=== PATIENT | male | born 1945 | race Caucasian/White ===

== ENCOUNTER 2024-06-24 08:04 | Outpatient (CLI) | payer MEDICARE, SELFPAY ==
--- NOTE | ~2024-06-24 | XR_ITS ---
Clinical Indication: Renal malignancy PA and lateral views of the chest: Comparison: None Findings: The lungs are clear, without evidence of focal consolidation or pleural effusion. Cardiome diastinal silhouette is within normal limits. Bones and soft tissues are unremarkable. Impression: Normal chest. Reviewed, dictated and finalized at location . Impression: Normal chest.
--- NOTE | ~2024-06-24 | CT_ITS ---
CT of the Abdomen and Pelvis: Indication: Renal cell carcinoma Technique: 2.5 mm axial scans were obtained through the abdomen and pelvis prior to and following in travenous administration of 100 cc of Omnipaque 350. Dose reduction technique was used on this scan b y utilizing automated exposure control and iterative reconstruction technique. The dose-length produc t (DLP) was 2121.58 mGy-cm. Findings: Scans through the lung bases are unremarkable. The liver, spleen, pancreas, gallbladder, adrenals and right kidney are within normal limits. There i s a 3.6 x 2.0 cm exophytic nonenhancing mass at the upper to mid pole of the left kidney, with sugges tion of some peripheral thin calcification. No evidence of aortic aneurysm. No lymphadenopathy. No bowel obstruction or bowel wall thickening. There is no evidence to suggest acute appendicitis. Images through the pelvis were performed. Urinary bladder unremarkable. Prostate gland is enlarged. N o ascites. Impression: 3.6 x 2.0 cm exophytic nonenhancing left renal mass, as above. This could reflect treated lesion or c omplex cystic mass. Comparison with any prior exams would be useful to assess for stability of the le patric. Reviewed, dictated and finalized at location . Impression: 3.6 x 2.0 cm exophytic nonenhancing left renal mass, as above. This could refle ct treated lesion or complex cystic mass. Comparison with any prior exams would be useful to assess for stability of the lesion.
--- OUTSIDE RECORDS SUMMARY | 2024-06-24 08:16 | XMS_ITS | Clinical Summary ---
Author Organization [facility] Address [address] [place] [id number] Care Team Providers Care Instant Print Operator Name Role Phone Srinivasa Sandoval MD Primary Care Provider [phone] Allergies No known active allergies Medications Farxiga 5 mg tablet Take 1 tablet (5 mg total) by mouth daily 04/05/2024 Active levothyroxine (SYNTHROID) 50 mcg tablet 04/04/2024 Active losartan-hydroch lorothiazide (HYZAAR) 100-25 mg per tablet 04/04/2024 Activ e simvastatin (ZOCOR) 20 mg tablet 04/04/2024 Active tamsulosin (FLOMAX) 0.4 mg extended release capsule 04/04/2024 Active Active Problems No known active problems Encounters Date Type Department Care Team Description 05/18/2024 1:30 PM CDT Office Visit [facility] [address] [place] [address] [place] [phone] Jeanie Lyon NP Chronic left-sided low back pain with left-sided sciatica; Neural foraminal stenosis of lumbar spine, moderate-severe L4-L5, L5-S1; Lumbar facet arthropathy; Degeneration of intervertebral disc of lumbar region, multilevel with lower extremity pain; History of kyphoplasty, T12; Myofascial pain syndrome of lumbar spine 05/18/2024 12:59 PM CDT - 05/18/2024 11:59 PM CDT Hospital Encounter [facility] Di[facility] [address] [place] [id number] Lumbar pain Discharge Disposition: Discharge to home or self care 05/06/2024 9:26 AM SOCIAL WORK COORDINATOR - 05/06/2024 11:59 PM SOCIAL WORK COORDINATOR Hospital Encounter [facility] Diagnostic Imaging [address] [place] [address] Right shoulder pain, unspecified chronicity Discharge Disposition: Discharge to home or self care 04/28/2024 10:15 AM SOCIAL WORK COORDINATOR Office Visit [facility] [address] [facility] [address] [place] [phone] Eligio Jacob MD Left hip pain (Primary Dx); Right shoulder pain, unspecified chronicity; Osteoarthritis of glenohumeral joint, right; Primary osteoarthritis of left hip; Lumbar radiculopathy 04/28/2024 8:45 AM SOCIAL WORK COORDINATOR - 04/28/2024 11:59 PM SOCIAL WORK COORDINATOR Hospital Encounter [facility] MOB 1 DIAG IMG [address] [place] [address] Right shoulder pain, unspecified chronicity; Left hip pain Discharge Disposition: Discharge to home or self care from Last 3 Months Surgical History Surgery Date Site/Laterality Comments FLUORO GUIDED INJECTION SHOULDER RIGHT 05/06/2024 Right BACK SURGERY 03/04/2018 - 03/03/2019 kyoplasty T 12 Medical History Medical History Date Comments DDD (degenerative disc disease), lumbar Lumbar facet arthropathy Neural foraminal stenosis of lumbar spine History of kyphoplasty, T12 Family History Medical History Relation Name Comments Diabetes Father Hypertension Father Heart disease Mother Relation Name Status Comments Father Mother Social History Tobacco Use Types Packs/Day Years Used Date Smoking Tobacco: Never Smokeless Tobacco: Never Tobacco Cessation:Counseling Given: Not Answered AUDIT-C Answer Date Recorded Q1: How often do you have a drink containing alc ohol? 2-3 times a week 05/18/2024 Q2: How many drinks containi ng alcohol do you have on a typical day when you are drinking? 1 or 2 05/18/2024 Q3: How often do you have si x or more drinks on one occasion? Never 05/18/2024 Sex and Gender Information Value Date Recorded Sex Assigned at Not on file Legal Sex Male 12:46 PM SOCIAL WORK COORDINATOR Gender Identity Male 04/24/2024 10:53 AM SOCIAL WORK COORDINATOR Sexual Orientation Straight 04/24/2024 10 :53 AM SOCIAL WORK COORDINATOR Occupation Industry Job Start Date Job End Date retired Not on file Not on file Not on file Obstetrics History Last Filed Vital Signs Vital Sign Reading Time Taken Comments Blood Pressure - - Pulse - - Temperature - - Respiratory Rate - - Oxygen Saturation - - Inhaled Oxygen Concentration - - Weight 99.8 kg (220 lb) 05/18/2024 1:16 PM CDT Height 177.8 cm (5' 10 ) 05/18/2024 1:16 PM CDT Body Mass Index 31.57 05/18/2024 1:16 PM CDT Plan of Treatment Health Maintenance Due Date Last Done Comments Depression Screening 1945 Fall Risk Assessment 1945 Hepatitis C Screening 1945 DTaP/Tdap/Td Vaccine (1 - Tdap) 1957 Hepatitis B Screening 1964 Pneumococcal vaccine 65+ (1 of 1 - PCV) 1996 Zoster Vaccine (1 of 2) 1996 Well Visit 65+ 06/03/2011 Influenza Vaccine (Season Ended) 2024 Procedures Procedure Name Priority Date/Time Associated Diagnosis Comments MD INJECTION SINGLE/STAFFING AND SCHEDULING COORDINATOR TRIGGER POINT 1/2 MUSCLES Routine 05/18/2024 1:30 PM CDT Myofascial pain syndrome of lumbar spine XR SPINE LUMBAR W BENDING 6 OR MORE VIEWS Schedule Routine, Read Routine (OP Routine) 05/18/2024 1:07 PM CDT Lumbar pain FLUORO GUIDED INJECTION SHOULDER RIGHT Schedule Routine, Read Routine (OP Routine) 05/06/2024 10:18 AM SOCIAL WORK COORDINATOR Right shoulder pain, unspecified chronicity XR HIP LEFT W PELVIS 2 OR 3 VIEWS Schedule Routine, Read Routine (OP Routine) 04/28/2024 10:19 AM SOCIAL WORK COORDINATOR Left hip pain XR SHOULDER RIGHT 2 OR MORE VIEWS Schedule Routine, Read Routine (OP Routine) 04/28/2024 10:19 AM SOCIAL WORK COORDINATOR Right shoulder pain, unspecified chronicity from Last 3 Months Results * MD INJECTION SINGLE/STAFFING AND SCHEDULING COORDINATOR TRIGGER POINT 1/2 MUSCLES (05/18/2024 1:30 PM CDT) Narrative Jeanie Lyon NP - 05/18/2024 1:30 PM CDT Jeanie Lyon NP 05/22/2024 11:36 AM Trigger Point Injection Performed by: Jeanie Lyon NP Authorized by: Jeanie Lyon NP Consent Given by: Patient Site marked: the procedure site was marked Timeout: prior to procedure the correct patient, procedure, and site was verified Consent obtained:: Verbal Risks discussed, including, but not limited to:: Pain Alternatives discussed:: Alternative treatment Site/side marked: Yes Indications: Pain Location: L lumbar paraspinal and L piriformis Local anesthetic: Ethyl chloride spray Ultrasound guidance: No Needle size: 22 G Number of muscles: 1 or 2 Approach: Posterior Medications: 6 mL lidocaine 10 mg/mL (1 %); 120 mg triamcinolone 40 mg/mL Patient tolerance: Patient tolerated the procedure well with no immediate complications Jeanie Lyon CARD TAPE CONVERTER OPERATOR IN CLINIC/BEDSIDE ORDERABLE S Final Result * XR Spine Lumbar W Bending 6 or More Views (05/18/2024 1:07 PM CDT) Anatomical Region Laterality Modality Spine N/A Computed Radiogr aphy 05/22/2024 9:51 AM CDT Narrative 05/22/2024 9:58 AM CDT EXAM DESCRIPTION: XR SPINE LUMBAR W BENDING 6 OR MORE VIEWS REASON FOR STUDY: pain Increased pain in low back and left leg for 2 months, no injury TECHNIQUE: 6 radiographic view(s) of the lumbar spine. COMPARISON: None FINDINGS: ALIGNMENT: Anatomic. VERTEBRAE: Multilevel vertebral body height loss, greatest at L1 and L2. Status post kyphoplasty at T12. Bilateral facet hypertrophy with moderate-severe neural foraminal narrowing at L4-L5 and L5-S1. DISCS: Intervertebral disc height loss at L5-S1. SOFT TISSUES: Within normal limits. IMPRESSION: Spinal spondylosis with moderate-severe neural foraminal narrowing at L4-L5 and L5-S1. THIS IS AN ELECTRONICALLY VERIFIED FINAL REPORT 05/22/2024 9:58 AM - Electronically signed by Mindy Bowles M.D. FT T: Report ID: [id number] Reading Location: [id number] Procedure Note Mindy Rahman MD - 05/22/2024 EXAM DESCRIPTION: XR SPINE LUMBAR W BENDING 6 OR MORE VIEWS REASON FOR STUDY: pain Increased pain in low back and left leg for 2 months, no injury TECHNIQUE: 6 radiographic view(s) of the lumbar spine. COMPARISON: None FINDINGS: ALIGNMENT: Anatomic. VERTEBRAE: Multilevel vertebral body height loss, greatest at L1 and L2. Status post kyphoplasty at T12. Bilateral facet hypertrophy with moderate-severe neural foraminal narrowing at L4-L5 and L5-S1. DISCS: Intervertebral disc height loss at L5-S1. SOFT TISSUES: Within normal limits. IMPRESSION: Spinal spondylosis with moderate-severe neural foraminalnarrowing at L4-L5 and L5-S1. THIS IS AN ELECTRONICALLY VERIFIED FINAL REPORT 05/22/2024 9:58 AM - Electronically signed by Mindy Bowles M.D. FT T: Report ID: [id number] Reading Location: [id number] Jeanie Lyon NP IMG XR PROCEDURES Final Res ult * FL Fluoro Guided Injection Shoulder Right (05/06/2024 10:18 AM SOCIAL WORK COORDINATOR) Anatomical Region Laterality Modality Shoulder Right Computed Radiogr aphy, Computed Radiography 05/06/2024 10:1 6 AM SOCIAL WORK COORDINATOR Narrative 05/06/2024 11:56 AM SOCIAL WORK COORDINATOR EXAM DESCRIPTION: FL FLUORO GUIDED INJECTION SHOULDER RIGHT HISTORY: Right shoulder pain RADIATION DOSE: Needle placement was documented with a fluoroscopic image. Dose: 15.81 uGym? Dose Area Product (DAP) Total number of views: 1 TECHNIQUE: Digital images acquired during fluoroscopy and stored on PACS. Needle placement was documented with fluoroscopic images. 10 mL of a mixture containing 40 mg Kenalog, 5 mL of 0.5 % bupivacaine and 4 mL of Omnipaque 240 was injected. COMPARISON: None PROCEDURE: Procedure, risks, benefits and alternatives explained to patient who then gave written consent. The right shoulder was marked and a time-out was called for correct marking verification. Anterior entry site marked using fluoroscopic guidance. Right shoulder prepped and draped using sterile technique. Local anesthesia achieved using 1% lidocaine injection. Hypodermic needle introduced into the joint space under direct fluoroscopic visualization. Non-ionic contrast instilled to confirm intra-articular position. A mixture of 40 mg Kenalog,0.5 % bupivacaine and Omnipaque 2 4 was then injected. Needle removed and entry site covered with sterile bandage. No immediate complications noted. IMPRESSION: Successful needle placement and injection for right shoulder steroid injection. THIS IS AN ELECTRONICALLY VERIFIED FINAL REPORT 05/06/2024 11:56 AM - Electronically signed by Ronan Ontiveros M.D. JA: SKYLER Report ID: [id number] Reading Location: [id number] Procedure Note Ronan Ontiveros MD - 05/06/2024 EXAM DESCRIPTION: FL FLUORO GUIDED INJECTION SHOULDER RIGHT HISTORY: Right shoulder pain RADIATION DOSE: Needle placement was documented with a fluoroscopicimage. Dose: 15.81 uGym? Dose Area Product (DAP) Total number of views: 1 TECHNIQUE: Digital images acquired during fluoroscopy and stored on PACS. Needle placement was documented with fluoroscopic images. 10 mL of a mixture containing 40 mg Kenalog, 5 mL of 0.5 % bupivacaineand 4 mL of Omnipaque 240 was injected. COMPARISON: None PROCEDURE: Procedure, risks, benefits and alternatives explained topatient who then gave written consent. The right shoulder was marked and atime-out was called for correct marking verification. Anterior entry site marked using fluoroscopic guidance. Right shoulder prepped and draped using sterile technique. Local anesthesia achievedusing 1% lidocaine injection. Hypodermic needle introduced into the joint space under direct fluoroscopic visualization. Non-ionic contrast instilled to confirm intra-articular position. A mixture of 40 mg Kenalog,0.5 % bupivacaine and Omnipaque 2 4 was then injected. Needle removed and entry site covered with sterile bandage. No immediate complications noted. IMPRESSION: Successful needle placement and injection for right shoulder steroid injection. THIS IS AN ELECTRONICALLY VERIFIED FINAL REPORT 05/06/2024 11:56 AM - Electronically signed by Ronan HOLLAND: SKYLER Report ID: [id number] Reading Location: [id number] Eligio Jacob MD IMG FLUOROSCOPY PROCEDURES Final Result * XR Hip Left W Pelvis Min 2 To 3 Views (04/28/2024 10:19 AM SOCIAL WORK COORDINATOR) Anatomical Region Laterality Modality Lower Extremities, Hip, Pelvis Left C omputed Radiography 04/29/2024 4:44 PM SOCIAL WORK COORDINATOR Narrative 04/29/2024 4:46 PM SOCIAL WORK COORDINATOR EXAM DESCRIPTION: XR SHOULDER RIGHT 2 OR MORE VIEWS; XR HIP LEFT 2 OR 3 VIEWS W PELVIS REASON FOR STUDY: right shoulder pain Torn rotator cuff x 6 months, pain ; Left hip pain Left hip pain x 1.5 months, nki FINDINGS: Four views right shoulder and two views left hip submitted without comparison. Right shoulder: No acute fracture. Alignment is normal. There is mild glenohumeral and acromioclavicular joint osteoarthritis. Alignment is normal. Left hip: No acute fracture. The femoral heads are well seated. There is mild bilateral hip osteoarthritis. Inferior lumbar degenerative disc disease with facet osteoarthritis is present. IMPRESSION: Mild right glenohumeral and acromioclavicular joint osteoarthritis. Mild bilateral hip osteoarthritis. 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 THIS IS AN ELECTRONICALLY VERIFIED FINAL REPORT 04/29/2024 4:46 PM - Electronically signed by Scar Rodriguez M.D. MF: ALIDA Report ID: [id number] Reading Location: [id number] Procedure Note Scar Rodriguez MD - 04/29/2024 EXAM DESCRIPTION: XR SHOULDER RIGHT 2 OR MORE VIEWS; XR HIP LEFT 2 OR 3 VIEWS W PELVIS REASON FOR STUDY: right shoulder pain Torn rotator cuff x 6 months, pain ; Left hip pain Left hip pain x 1.5 months, nki FINDINGS: Four views right shoulder and two views left hip submittedwithout comparison. Right shoulder: No acute fracture. Alignment is normal. There is mild glenohumeral and acromioclavicular joint osteoarthritis. Alignment is normal. Left hip: No acute fracture. The femoral heads are well seated. There is mild bilateral hip osteoarthritis. Inferior lumbar degenerative disc diseasewith facet osteoarthritis is present. IMPRESSION: Mild right glenohumeral and acromioclavicular joint osteoarthritis. Mild bilateral hip osteoarthritis. 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 THIS IS AN ELECTRONICALLY VERIFIED FINAL REPORT 04/29/2024 4:46 PM - Electronically signed by Scar Rodriguez M.D. MF: ALIDA Report ID: [id number] Reading Location: [place] [address] Eligio Jacob MD IMG XR PROCEDURES Final Re sult * XR Shoulder Right 2 or More Views (04/28/2024 10:19 AM SOCIAL WORK COORDINATOR) Anatomical Region Laterality Modality Upper Extremities, Shoulder Right Comp uted Radiography 04/29/2024 4:44 PM SOCIAL WORK COORDINATOR Narrative 04/29/2024 4:46 PM SOCIAL WORK COORDINATOR EXAM DESCRIPTION: XR SHOULDER RIGHT 2 OR MORE VIEWS; XR HIP LEFT 2 OR 3 VIEWS W PELVIS REASON FOR STUDY: right shoulder pain Torn rotator cuff x 6 months, pain ; Left hip pain Left hip pain x 1.5 months, nki FINDINGS: Four views right shoulder and two views left hip submitted without comparison. Right shoulder: No acute fracture. Alignment is normal. There is mild glenohumeral and acromioclavicular joint osteoarthritis. Alignment is normal. Left hip: No acute fracture. The femoral heads are well seated. There is mild bilateral hip osteoarthritis. Inferior lumbar degenerative disc disease with facet osteoarthritis is present. IMPRESSION: Mild right glenohumeral and acromioclavicular joint osteoarthritis. Mild bilateral hip osteoarthritis. 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 THIS IS AN ELECTRONICALLY VERIFIED FINAL REPORT 04/29/2024 4:46 PM - Electronically signed by Scar Rodriguez M.D. MF: ALIDA Report ID: [id number] Reading Location: [id number] Procedure Note Scar Rodriguez MD - 04/29/2024 EXAM DESCRIPTION: XR SHOULDER RIGHT 2 OR MORE VIEWS; XR HIP LEFT 2 OR 3 VIEWS W PELVIS REASON FOR STUDY: right shoulder pain Torn rotator cuff x 6 months, pain ; Left hip pain Left hip pain x 1.5 months, nki FINDINGS: Four views right shoulder and two views left hip submittedwithout comparison. Right shoulder: No acute fracture. Alignment is normal. There is mild glenohumeral and acromioclavicular joint osteoarthritis. Alignment is normal. Left hip: No acute fracture. The femoral heads are well seated. There is mild bilateral hip osteoarthritis. Inferior lumbar degenerative disc diseasewith facet osteoarthritis is present. IMPRESSION: Mild right glenohumeral and acromioclavicular joint osteoarthritis. Mild bilateral hip osteoarthritis. 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 THIS IS AN ELECTRONICALLY VERIFIED FINAL REPORT 04/29/2024 4:46 PM - Electronically signed by Scar Rodriguez M.D. MF: ALIDA Report ID: [id number] Reading Location: [id number] Eligio Jacob MD IMG XR PROCEDURES Final Re sult from Last 3 Months Insurance [facility] [id number] [place] [id number] MEDICARE AARP Care Teams Instant Print Operator Relationship Specialty Start Date End Date Srinivasa Sandoval MD [address] [place] [address] PCP - General Family Practice 04/28/24
--- OUTSIDE RECORDS SUMMARY | 2024-06-24 08:16 | XMS_ITS | Patient Health Record ---
Author Organization [employer] Address [address] [place], [place] [id number] Support Name Relationship Address Phone JORDYN AQUINO Guarantor Unknown [phone] REASON FOR REFERRAL No Information MEDICATIONS Medication SIG (Take, Route, Frequency, Duration) Notes Start Date End Date Status Levaquin 500 MG Oral 10/04/2017 Ac tive Medrol 4 MG Oral 10/04/2017 Active metFORMIN HCl 500 MG Oral 10/04/2017 03/04/18 00 Active Bicalutamide 50 MG Oral 10/04/2017 Active Tamsulosin HCl 0.4 MG Oral 10/04/2017 900 Active Levothyroxine Sodium 50 MCG Oral 10/04/2017 0 Active traMADol HCl 50 MG Oral 10/04/2017 Active Losartan Potassium 100 MG Oral 10/04/201703/1899 Active Simvastatin 20 MG Oral 10/04/2017 Active PLAN OF TREATMENT No Information Insurance Providers Payer Name Payer Address Payer Phone Subscriber Number Group Number Insured Name Patient Relationship to Insured Coverage Start Date Coverage End Date [employer] [place] [employer] [address] [address] [place] [phone] [id number] JORDYN AQUINO Self - patient is the insured [facility] Medicare Supplement [address] [facility] [place] [phone] [id number] JORDYN AQUINO Self - patient is the insured
--- OUTSIDE RECORDS SUMMARY | 2024-06-24 08:16 | XMS_ITS | Referral Summary ---
[facility] Address [address] [place] [phone] Care Team Providers Care Christmas Tree Farm Manager Name Role Phone Srinivasa Sandoval MD Primary Care Provider [phone] Encounters Date Type Department Care Team Description 05/18/2024 12:59 PM CDT - 05/18/2024 11:59 PM CDT Hospital Encounter [facility] Di[facility] Imaging [address] [place] [id number] Lumbar pain Discharge Disposition: Discharge to home or self care 05/18/2024 1:30 PM CDT Office Visit [facility] [address] [place] [phone] Jeanie Lyon, RENU Chronic left-sided low back pain with left-sided sciatica; Neural foraminal stenosis of lumbar spine, moderate-severe L4-L5, L5-S1; Lumbar facet arthropathy; Degeneration of intervertebral disc of lumbar region, multilevel with lower extremity pain; History of kyphoplasty, T12; Myofascial pain syndrome of lumbar spine 05/06/2024 9:26 AM FILM HISTORIAN - 05/06/2024 11:59 PM FILM HISTORIAN Hospital Encounter [facility] Diagnostic Imaging [facility] [place] [address] Right shoulder pain, unspecified chronicity Discharge Disposition: Discharge to home or self care 04/28/2024 8:45 AM FILM HISTORIAN - 04/28/2024 11:59 PM FILM HISTORIAN Hospital Encounter [facility] [address] DIAG IMG [address] [place] [address], [place] [address] Right shoulder pain, unspecified chronicity; Left hip pain Discharge Disposition: Discharge to home or self care 04/28/2024 10:15 AM FILM HISTORIAN Office Visit [facility] [address] [facility] [address] [place] [phone] Eligio Jacob MD Left hip pain (Primary Dx); Right shoulder pain, unspecified chronicity; Osteoarthritis of glenohumeral joint, right; Primary osteoarthritis of left hip; Lumbar radiculopathy from Last 3 Months Allergies No known active allergies Medications Farxiga 5 mg tablet Take 1 tablet (5 mg total) by mouth daily 04/05/2024 Active levothyroxine (SYNTHROID) 50 mcg tablet 04/04/2024 Active losartan-hydroch lorothiazide (HYZAAR) 100-25 mg per tablet 04/04/2024 Activ e simvastatin (ZOCOR) 20 mg tablet 04/04/2024 Active tamsulosin (FLOMAX) 0.4 mg extended release capsule 04/04/2024 Active Active Problems No known active problems Social History Tobacco Use Types Packs/Day Years [...] on file Legal Sex Male 12:46 PM FILM HISTORIAN Gender Identity Male 04/24/2024 10:53 AM FILM HISTORIAN Sexual Orientation Straight 04/24/2024 10 :53 AM FILM HISTORIAN Occupation Industry Job Start Date Job End Date retired Not on file Not on file Not on file Last Filed Vital Signs Vital Sign Reading Time Taken Comments Blood Pressure - - Pulse - - Temperature - - Respiratory Rate - - Oxygen Saturation - - Inhaled Oxygen Concentration - - Weight 99.8 kg (220 lb) 05/18/2024 1:16 PM CDT Height 177.8 cm (5' 10 ) 05/18/2024 1:16 PM CDT Body Mass Index 31.57 05/18/2024 1:16 PM CDT Plan of Treatment Not on file Procedures Procedure Name Priority Date/Time Associated Diagnosis Comments [place] INJECTION SINGLE/PERSONAL LOAN SPECIALIST TRIGGER POINT 1/2 MUSCLES Routine 05/18/2024 1:30 PM CDT Myofascial pain syndrome of lumbar spine XR SPINE LUMBAR W BENDING 6 OR MORE VIEWS Schedule Routine, Read Routine (OP Routine) 05/18/2024 1:07 PM CDT Lumbar pain FLUORO GUIDED INJECTION SHOULDER RIGHT Schedule Routine, Read Routine (OP Routine) 05/06/2024 10:18 AM FILM HISTORIAN Right shoulder pain, unspecified chronicity XR HIP LEFT W PELVIS 2 OR 3 VIEWS Schedule Routine, Read Routine (OP Routine) 04/28/2024 10:19 AM FILM HISTORIAN Left hip pain XR SHOULDER RIGHT 2 OR MORE VIEWS Schedule Routine, Read Routine (OP Routine) 04/28/2024 10:19 AM FILM HISTORIAN Right shoulder pain, unspecified chronicity from Last 3 Months Results * [place] INJECTION SINGLE/PERSONAL LOAN SPECIALIST TRIGGER POINT 1/2 MUSCLES (05/18/2024 1:30 PM [...] the procedure well with no immediate complications us Jeanie Lyon NP IN CLINIC/BEDSIDE ORDERABLE S Final Result * [...] Mindy Bowles M.D. FT T: Report ID: [id number] Reading Location: [id number] Procedure Note Mindy Rahman MD - 05/22/2024 [...] Mindy Bowles M.D. FT T: Report ID: [id number] Reading Location: [place] [address] Jeanie Lyon WOOD GETTER IMG XR PROCEDURES Final Res ult * FL Fluoro Guided Injection Shoulder Right (05/06/2024 10:18 AM FILM HISTORIAN) Anatomical Region Laterality Modality Shoulder Right Computed Radiogr aphy, Computed Radiography 05/06/2024 10:1 6 AM FILM HISTORIAN Narrative 05/06/2024 11:56 AM FILM HISTORIAN EXAM DESCRIPTION: FL FLUORO GUIDED INJECTION SHOULDER [...] Ronan Ontiveros M.D. JA: SKYLER Report ID: [id number] Reading Location: [id number] Procedure Note Ronan Ontiveros MD - 05/06/2024 [...] signed by Ronan HOLLAND: SKYLER Report ID: [id number] Reading Location: [id number] Eligio Jacob MD [facility] FLUOROSCOPY PROCEDURES Final Result * XR Hip Left W Pelvis Min 2 To 3 Views (04/28/2024 10:19 AM FILM HISTORIAN) Anatomical Region Laterality Modality Lower Extremities, Hip, Pelvis Left C omputed Radiography 04/29/2024 4:44 PM FILM HISTORIAN Narrative 04/29/2024 4:46 PM FILM HISTORIAN EXAM DESCRIPTION: XR SHOULDER RIGHT 2 OR [...] 4:46 PM - Electronically signed by Scar IRWIN: ALIDA Report ID: [id number] Reading Location: [id number] Procedure Note Scar Rodriguez MD - 04/29/2024 [...] Scar Rodriguez M.D. MF: ALIDA Report ID: [id number] Reading Location: [id number] Eligio Jacob MD IMG XR PROCEDURES Final Re sult * XR Shoulder Right 2 or More Views (04/28/2024 10:19 AM FILM HISTORIAN) Anatomical Region Laterality Modality Upper Extremities, Shoulder Right Comp uted Radiography 04/29/2024 4:44 PM FILM HISTORIAN Narrative 04/29/2024 4:46 PM FILM HISTORIAN EXAM DESCRIPTION: XR SHOULDER RIGHT 2 OR [...] Scar Rodriguez M.D. MF: ALIDA Report ID: [id number] Reading Location: [id number] Procedure Note Scar Rodriguez MD - 04/29/2024 [...] Scar Rodriguez M.D. MF: ALIDA Report ID: [id number] Reading Location: [place] [address] Eligio Jacob MD IMG XR PROCEDURES Final Re sult from Last 3 Months Insurance MEDICARE [facility] Care Teams [employer] Tree [employer] Manager Relationship Specialty Start Date End Date Srinivasa Sandoval MD [address] [place], [place] [id number] PCP - General Family Practice 04/28/24
== END 2024-06-24 08:05 | disposition home or self-care (01) ==
PROVIDERS: PCP Family Medicine; Visit Provider Urology
DX: C64.2 Malignant neoplasm of left kidney, except renal pelvis (principal); N28.89 Other specified disorders of kidney and ureter
CPT/HCPCS: 71046; 74178; Q9967

== ENCOUNTER 2024-10-01 12:14 | Emergency (ER) | payer MEDICARE, SELFPAY ==
--- NOTE | 2024-10-01 12:18 | ED.URI ---
HPI - URI/Sore Throat General Chief Complaint: Upper Respiratory Infection Stated Complaint: COUGH/SINUS Time Seen by Provider: 10/01/24 12:18 Source: patient Mode of arrival: ambulatory Limitations: no limitations History of Present Illness HPI Narrative: Patient is a 71-year-old male who presents with sinus congestion, postnasal drainage and cough. Patient reports cough is keeping him up at night along with his . States he can breathe out his nose fine but the drainage gets stuck in his throat causing a cough. Patient has been taking Mucinex. Denies any fever, chills, nausea vomiting, diarrhea. Related Data Home Medications ?Medication ?Instructions ?Recorded ?Confirmed ?Last Taken ?Type B-complex with vitamin C 1 cap PO DAILY 03/03/24 07/04/24 Unknown History cholecalciferol (vitamin D3) 25 25 mcg PO DAILY 03/03/24 07/04/24 Unknown History mcg (1,000 unit) capsule vitamins A,C,U-vcyv-kinvag 2,148 2 tablet PO BID 03/03/24 07/04/24 Unknown History mcg-113 mg-45 mg-17.4 mg tablet (PreserVision AREDS) Allergies Allergy/AdvReac Type Severity Reaction Status Date / Time No Known Allergies Allergy Verified 06/29/24 09:43 Review of Systems Review of Systems: All systems reviewed & are unremarkable except as noted in HPI and below Constitutional: Constitutional: Denies chills, Denies fatigue, Denies fever(s), Denies headache(s), Denies malaise and Denies weakness Eyes: Eyes: Denies blurry vision, Denies itchy eyes and Denies loss of vision ENT: Denies otalgia, Denies headache(s), Reports nasal congestion, Denies sinus pain and Denies sore throat Cardiovascular: Cardiovascular: Denies chest pain, Denies irregular heart rhythm and Denies dyspnea Respiratory: Respiratory: Reports cough and Denies dyspnea Gastrointestinal: Gastrointestinal: Denies abdominal pain, Denies diarrhea, Denies nausea and Denies vomiting Musculoskeletal: Musculoskeletal: Denies back pain, Denies myalgias and Denies arthralgias Integumentary/Breasts: Skin/Breast: Denies pruritus and Denies rash Neurologic: Denies headache(s), Denies loss of vision and Denies weakness Psychiatric: Psychiatric: Reports no additional psychiatric complaints Endocrine: Endocrine: Denies fatigue Allergic/Immunologic: Allergic/Immunologic: Denies itchy eyes PMFSH Past Medical History Medical History Calculus in bladder Acquired absence of kidney Malignant neoplasm of left kidney, except renal pelvis Chronic kidney disease, stage 4 (severe) Bradycardia, unspecified Secondary hyperparathyroidism, not elsewhere classified 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 (nsaid) Essential hematuria Pure hyperglyceridemia Chronic kidney disease, stage 3b Adenocarcinoma of prostate Type 2 diabetes mellitus without complications Essential (primary) hypertension Proteinuria, unspecified Acute kidney failure, unspecified Social History Social History Smoking status: Smoker, status unknown Do You Feel Safe in your Home?: Yes Lack of Transportation: No Lack of Food: Sometimes True Current Housing: I Have Housing Concerned About Future Housing: No Difficulty Paying Gas/Electric Bills: No Difficulty Paying for Meds: No Currently Unemployed: No Education: Master's Degree or Higher Difficulty w/ Childcare or Family Care: No Gender identity (if verbalized by the patient): Male Comments At time of signature, agree with nursing past medical, surgical, social and family history. There is no relevant family history pertinent to the presenting complaint. Exam Const: General: cooperative, healthy appearing, comfortable, no acute distress and well nourished Nutritional Appearance: well nourished Orientation/consciousness: patient oriented x3 Limitations: no limitations HENMT: Head: normal to inspection, normocephalic and atraumatic Ears: hearing grossly normal bilaterally, external ears normal, TM's normal bilaterally, EAC's normal and no periauricular adenopathy Face/Nose/Sinus: Normal external nose present, Abnormal mucous membranes and turbinates present erythematous bilateral and diffuse, normal facial exam, sinuses nontender and face symmetric Face and sinus: normal facial exam, sinuses nontender and face symmetric Mouth: Yes Normal oral and palatal mucosa present, Yes lip normal, Yes tongue normal, Yes Normal salivary glands and ducts present, Yes oropharynx normal and Yes moist mucous membranes Teeth and gingiva: dentition normal Throat: posterior oropharynx normal, tonsils normal and uvula midline Eyes: General: appearance normal, both eyes and all related structures Alignment and Position: alignment normal and position normal Periorbital: periorbital findings normal Eyelids: eyelids normal Pupils: Equal, round and reactive pupils present Neck: Neck: normal visual inspection, full ROM, no lymphadenopathy and supple Chest: Chest palpation & inspection: normal inspection of the chest and normal palpation of entire chest wall Resp: Effort & Inspection: normal respiratory effort, able to speak in complete sentences and Actively coughing wet Auscultation: no crackles, no rales, no rhonchi and wheezes expiratory wheezes and scattered wheezes Cardio: Rate: regular rate Rhythm: regular rhythm Heart sounds: S1 normal heart sound present and S2 normal heart sound present GI: Inspection: normal to inspection Skin: General skin exam: normal color and no rashes or lesions noted Neuro: General: patient oriented x3 and moves all extremities Cranial nerves: Yes Equal, round and reactive pupils present Speech: normal speech Gait exam (Neuro): Normal gait present Extrem: General: normal to inspection, full ROM and no edema Psych: Appearance: grossly normal and well kempt Mental Status: mental status grossly normal Speech and movement: Normal speech and movement present Affect: normal affect Attitude: cooperative Thought process: Normal thought process present Course Course Emergency Course: Discharge instructions reviewed with patient, as well as provided in writing per nursing staff. The instructions also include specific and strict return/GO TO THE ER as well as f/u information. All questions have been answered, and the patient deny any further questions with discharge and discharge plan. Portions of this record may have been created with voice recognition software Level of Care: Express Care Visit Vital Signs Vital signs: Reviewed MDM - URI/Sore Throat MDM Narrative Medical decision making narrative: Pt well hydrated appearing, in no respiratory distress, hemodynamically stable. Recommend supportive care. The patient is stable at time of discharge the clinical impression was discussed and the patient was given the opportunity to ask questions, which were addressed as completely as possible given the information available at present. Anticipatory guidance and return to care precautions were discussed and the importance of primary care follow-up was stressed and encouraged. The patient voiced understanding of the plan, indications to return, and the need for follow-up. Exam findings show no acute concerns or changes Patient is appropriate for outpatient treatment and follow-up. Differential diagnosis considered: Walter virus, strep pharyngitis, allergic rhinitis, upper respiratory tract infection, sinusitis, rhinosinusitis, nasopharyngitis. viral pharyngitis, otitis media, otitis externa, otitis effusion, foreign body, cerumen impaction, viral syndrome, and influenza.? Medical Records Attestation: I reviewed the patient's medical records. Discharge Plan Discharge Clinical Impression: Upper respiratory infection with cough and congestion Patient Disposition: Home Condition: Stable Instructions: Upper Respiratory Infection (ED) Additional Instructions: Take antibiotic as prescribed. Take steroids per package instructions. Use Tessalon Perles as needed for cough. Use inhaler with spacer as needed. You have been prescribed Doxycycline today.It may make your skin more sensitive to sunlight than normal. Make sure you wear sunscreen at all times when outside while on the medication. Other symptomatic treatments include: -Alternate Tylenol and Motrin per package directions for fever or pain: Tylenol 650-1000mg by mouth every 4-6 hours. Do not exceed 4000mg in 24 hours. Advil (Ibuprofen) 600 mg by mouth every 6 hours. Do not exceed 2400mg in 24 hours. 8 AM: Tylenol 11 AM: Ibuprofen 2 PM: Tylenol 5 PM: Ibuprofen 8 PM: Tylenol 11 PM: Ibuprofen 2 AM: Tylenol 5 AM: Ibuprofen -Antihistamine medication such as Benadryl at night and Zyrtec/Claritin/Phyllis during the day can help improve symptoms. -Use Flonase twice a day for 5 days then daily to help reduce the inflammation and dry up your sinuses. -You can also use Sudafed or Mucinex. Be sure to drink plenty of water with these medications at least 8 ounces with every dose and it is important to drink 8 to 10 glasses of water per day. Water is a natural decongestant -Eat and drink things that are easy to swallow, like tea or soup, or popsicles. -Oral rinses such as: Salt water gargles and/or may use topical anesthetic (eg. Chloraseptic spray) or lozenges to relieve dryness or throat pain). -Frequent hand washing or hand industrial design engineer is one of the best ways to prevent spread of infection. -Using a vaporizer or humidifier at night will also help thin secretions and help with coughing up phlegm. Call your Primary Care Doctor and make a follow-up appointment in 3 days. If your cough worsens, you develop a fever greater than 103, you develop shaking chills, a fast heartbeat, trouble breathing and/or feel you are are breathing much faster than usual, call your Primary Care Doctor or go to the ER. Patient Language: Angolan Prescriptions: New (DME) Aerochamber MV Spacer See Rx Instructions .Route Qty: 1 0RF Rx Instructions: As directed benzonatate 100 mg capsule 100 mg PO BID PRN (Reason: cough) Qty: 14 0RF albuterol sulfate 90 mcg/actuation HFA aerosol inhaler 2 puff inhalation QID PRN (Reason: shortness of breath or wheezing) Qty: 6.7 0RF doxycycline monohydrate 100 mg tablet 100 mg PO BID 5 Days Qty: 10 0RF methylprednisolone [Medrol (Robbin)] 4 mg tablets,dose pack See Rx Instructions .ROUTE .COMPLEX Qty: 21 0RF Rx Instructions: orally per package directions fluticasone propionate [Flonase Allergy Relief] 50 mcg/actuation spray,suspension 1 spray intranasal DAILY Qty: 16 0RF Rx Instructions: administer into each nostril No Action cholecalciferol (vitamin D3) 25 mcg (1,000 unit) capsule 25 mcg PO DAILY PreserVision AREDS 2,148 mcg-113 mg-45 mg-17.4mg tablet 2 tablet PO BID Rx Instructions: administer with AM and PM meals B-complex with vitamin C Capsule 1 cap PO DAILY dapagliflozin propanediol [Farxiga] 5 mg tablet 5 mg PO DAILY Qty: 90 3RF tamsulosin 0.4 mg capsule 0.8 mg PO DAILY Qty: 180 1RF levothyroxine 50 mcg tablet 50 mcg PO DAILY Qty: 90 1RF losartan-hydrochlorothiazide 100-25 mg tablet 1 tablet PO DAILY Qty: 90 1RF simvastatin 20 mg tablet 20 mg PO DAILY Qty: 90 1RF Follow-up/Referrals: Srinivasa Sandoval MD [Primary Care Provider] - 3 Days Time of Disposition: 12:37
[2024-10-01 12:23] VITALS: BP 122/80; PULSE 82; RESP 16; TEMP 36.6; O2SAT 97
== END 2024-10-01 12:40 | disposition home or self-care (01) ==
PROVIDERS: Emergency Provider Nurse Practitioner Family; PCP Family Medicine
DX: J06.9 Acute upper respiratory infection, unspecified (principal); R05.9 Cough, unspecified; I12.9 Hypertensive chronic kidney disease with stage 1 through stage 4 chronic kidney disease, or unspecified chronic kidney disease; E11.22 Type 2 diabetes mellitus with diabetic chronic kidney disease; N18.4 Chronic kidney disease, stage 4 (severe); Z90.5 Acquired absence of kidney; E78.1 Pure hyperglyceridemia; Z85.528 Personal history of other malignant neoplasm of kidney; Z85.46 Personal history of malignant neoplasm of prostate; E21.1 Secondary hyperparathyroidism, not elsewhere classified
CPT/HCPCS: 99213; G0463